=== PATIENT | male | born 1965 | race Caucasian/White ===

== ENCOUNTER 2017-01-28 03:12 | Emergency (ER) | payer BC ==
[~2017-01-28] VITALS: Ht 175.3 cm; Wt 75.0 kg
[2017-01-28 05:27] LABS: CHLORIDE 107 mEq/L (99-109); SODIUM 140 mEq/L (136-147)
[2017-01-28 05:30] LABS: GLUCOSE 111 mg/dL (70-99)
[2017-01-28 05:31] LABS: ANION GAP 11 MEQ/L (2-14); TOTAL BILIRUBIN 0.3 mg/dL (0.0-1.0)
[2017-01-28 05:33] LABS: ALKALINE PHOSPHATASE 82 IU/L (3-129); GFR ESTIMATE (CALCULATED) > 59 mL/min/
[2017-01-28 05:34] LABS: UREA NITROGEN (BUN) 22 mg/dL (9-23)
[2017-01-28 05:35] LABS: DIRECT BILIRUBIN 0.1 mg/dL (0.0-0.3)
[2017-01-28 05:37] LABS: HEMATOCRIT 40.8 % (38.0-50.0); LIPASE 33 U/L (1.0-51.0); MCH 29.1 PG (29.0-34.0); MCHC 33.3 G/DL (30.0-36.0); MCV 87.4 FL (86-99); MEAN PLAT.VOLUME 9.4 uM^3 (9.0-12.4); PLATELET COUNT 345 K/uL (156-360); RBC DIS.WIDTH-CV 13.8 % (11.8-14.6); RBC DIS.WIDTH-SD 43.9 % (39-53); RED BLOOD COUNT 4.67 M/uL (4.00-5.50); WHITE BLOOD COUNT 6.6 K/uL (4.1-10.2)
[2017-01-28 05:44] LABS: TROP-I INTERPRETATION NEGATIVE; TROPONIN-I < 0.01 ng/mL (0.0-0.30)
[2017-01-28 06:55] LABS: D-DIMER ELISA 0.68 mg/L FEU (< 0.57)
[2017-01-28 08:07] LABS: TROP-I INTERPRETATION NEGATIVE; TROPONIN-I < 0.01 ng/mL (0.0-0.30)
[2017-01-28 09:58] VITALS: BP 136/95
== END 2017-01-28 10:20 | disposition home or self-care (01) ==
LOC: EME 03:12
PROVIDERS: Emergency Medicine
DX: R07.89 Other chest pain (principal); J06.9 Acute upper respiratory infection, unspecified; Z87.891 Personal history of nicotine dependence
CPT/HCPCS: 71020; 71275; 80048; 80076; 83690; 84484; 85027; 85379; 93005; 99281; 99285